=== PATIENT | female | born 1980 | race Caucasian/White ===

== ENCOUNTER 2017-09-15 16:47 | Observation (INO) | payer OTHER ==
[2017-09-15] MEDS ORDERED: ACETAMINOPHEN 1000 MG/100 ML VIAL (NON FORMULARY) IVPB ONE (17:09)
[2017-09-15] MEDS ORDERED: SODIUM CHLORIDE 0.9% 500 ML INFUS.BAG IV ONE (17:09)
[2017-09-15] MEDS ORDERED: morphine CARPU-JECT 4 MG/1 ML DISP.SYRIN IVPUSH ONE ×4 (17:09→23:04)
[2017-09-15] MEDS ORDERED: CYCLOBENZAPRINE HCL 5 MG TABLET PO SCH (17:15)
--- NOTE | 2017-09-15 17:16 | PDOC ---
History of Present Illness - General History Source: Patient, Sibling Exam Limitations: No Limitations - History of Present Illness Initial Comments: 09/15/17 17:31 The patient is 37 year old female, with a significant past medical history of back pain, who is brought to the ER accompanied by family member complaining of lower back pain since earlier today. The patient reports getting a massage on Monday, which triggered muscle soreness. She reports using epsom salt baths and ice packs with mild relief of symptoms. However today while showering patient reports the pain became worse. The patient states she then laid bed and applied muscle stimulators to her lower back with minimal relief of symptoms. Patient reports pain is exacerbated with movement. The patient reports a history of back pain in the past, for which she has followed up with neurology and was told the pain was muscular not skeletal. At the time, patient states she received an injection which alleviated her symptoms. The patient states she takes Ibuprofen for her pain as needed. The patient reports her last meal was yesterday. She denies any flank pain, dysuria, or hematuria. She denies any fever, chills, headache, or dizziness. She denies any recent travel or sick contacts. Allergies: Naproxen Past Surgical History: None reported Social History: Social ETOH use. Non smoker. No recreational drug use. <Fadumo Hood - Last Filed: 09/15/17 17:31> <Mary Nguyen - Last Filed: 09/15/17 19:16> - General History Source: Patient Exam Limitations: No Limitations <Teodoro Alfaro - Last Filed: 09/15/17 22:06> - General Chief Complaint: Back Pain Stated Complaint: PAIN, ACUTE Time Seen by Provider: 09/15/17 16:50 Past History <Fadumo Hood - Last Filed: 09/15/17 17:31> <Mary Nguyen - Last Filed: 09/15/17 19:16> - Past Medical History COPD: No Other medical history: BACK PAIN. - Suicide/Smoking/Psychosocial Hx Smoking History: Never smoked Hx Alcohol Use: No Drug/Substance Use Hx: No Substance Use Type: None <Teodoro Alfaro - Last Filed: 09/15/17 22:06> - Past Medical History Allergies/Adverse Reactions: Allergies Allergy/AdvReac Type Severity Reaction Status Date / Time naproxen Allergy Intermediate Swelling Verified 09/15/17 17:01 Home Medications: Ambulatory Orders Ibuprofen 600 mg PO PRN PRN 09/15/17 Review of Systems - Review of Systems Able to Perform ROS?: Yes Comments:: 09/15/17 17:31 GENERAL/CONSTITUTIONAL: No fever or chills. No weakness. HEAD, EYES, EARS, NOSE AND THROAT: No change in vision. No ear pain or discharge. No sore throat. CARDIOVASCULAR: No chest pain or shortness of breath. RESPIRATORY: No cough, wheezing, or hemoptysis. GASTROINTESTINAL: No nausea, vomiting, diarrhea or constipation. GENITOURINARY: No dysuria, frequency, or change in urination. MUSCULOSKELETAL: (+) lower back pain. No neck pain. SKIN: No rash NEUROLOGIC: No headache, vertigo, loss of consciousness, or change in strength/ sensation. ENDOCRINE: No increased thirst. No abnormal weight change. HEMATOLOGIC/LYMPHATIC: No anemia, easy bleeding, or history of blood clots. ALLERGIC/IMMUNOLOGIC: No hives or skin allergy. <Fadumo Hood - Last Filed: 09/15/17 17:31> *Physical Exam - Vital Signs Last Vital Signs Temp Pulse Resp BP Pulse Ox 98.2 F 84 18 142/73 99 09/15/17 17:02 09/15/17 17:02 09/15/17 17:02 09/15/17 17:02 09/15/17 17:02 - Physical Exam Comments: 09/15/17 17:31 GENERAL: Awake, alert, and fully oriented, appears uncomfortable HEAD: No signs of trauma EYES: PERRLA, EOMI, sclera anicteric, conjunctiva clear ENT: Auricles normal inspection, hearing grossly normal, nares patent, oropharynx clear without exudates. Moist mucosa NECK: Normal ROM, supple, no lymphadenopathy, JVD, or masses LUNGS: Breath sounds equal, clear to auscultation bilaterally. No wheezes, and no crackles HEART: Regular rate and rhythm, normal S1 and S2, no murmurs, rubs or gallops BACK: (+) muscle spasm, left lower back tenderness to palpation, No bony tenderness or step offs EXTREMITIES: Normal range of motion, no edema. No clubbing or cyanosis. No cords, erythema, or tenderness NEUROLOGICAL: Cranial nerves II through XII grossly intact. Normal speech, normal gait SKIN: Warm, Dry, normal turgor, no rashes or lesions noted. <Fadumo Hood - Last Filed: 09/15/17 17:31> - Vital Signs Last Vital Signs Temp Pulse Resp BP Pulse Ox 98.2 F 84 18 142/73 99 09/15/17 17:02 09/15/17 17:02 09/15/17 17:02 09/15/17 17:02 09/15/17 17:02 <Mary Nguyen - Last Filed: 09/15/17 19:16> - Vital Signs Last Vital Signs Temp Pulse Resp BP Pulse Ox 98.2 F 84 18 142/73 99 09/15/17 17:02 09/15/17 17:02 09/15/17 17:02 09/15/17 17:02 09/15/17 17:02 <Teodoro Alfaro - Last Filed: 09/15/17 22:06> ED Treatment Course - ADDITIONAL ORDERS Additional order review: Laboratory Results 09/15/17 17:32 Serum , Qual Negative - Medications Given in the ED: ED Medications Discontinued Medications Generic Name Dose Route Start Last Admin Trade Name Freq PRN Reason Stop Dose Admin Acetaminophen 1,000 mg 09/15/17 17:09 09/15/17 17:56 Ofirmev Injection - IVPB 09/15/17 17:10 1,000 mg ONCE ONE Administration Diazepam 5 mg 09/15/17 18:29 09/15/17 18:56 Valium Injection - IVPUSH 09/15/17 18:30 Not Given ONCE ONE Diazepam 5 mg 09/15/17 18:55 09/15/17 19:00 Valium - PO 09/15/17 18:56 5 mg ONCE ONE Administration Morphine Sulfate 4 mg 09/15/17 17:09 09/15/17 17:31 Morphine Injection - IVPUSH 09/15/17 17:10 4 mg ONCE ONE Administration Oxycodone HCl 5 mg 09/15/17 18:50 09/15/17 19:00 Roxicodone - PO 09/15/17 18:51 5 mg ONCE ONE Administration Sodium Chloride 1,000 ml 09/15/17 17:09 09/15/17 17:30 Normal Saline - IV 09/15/17 17:10 1,000 ml ONCE ONE Administration <Mary Nguyen - Last Filed: 09/15/17 19:16> - LABORATORY CBC & Chemistry Diagram: 09/15/17 20:00 09/15/17 20:00 <Teodoro Alfaro - Last Filed: 09/15/17 22:06> Medical Decision Making - Medical Decision Making 09/15/17 17:33 A portion of this note was documented by scribe services under my direction. I have reviewed the details of the note, within reason, and agree with the documentation with the following case summary and management plan written by me. Patient treated in the ED. Nursing notes are reviewed and incorporated into the medical decision-making. Vital signs reviewed. Peripheral IV access obtained by the nurse, laboratory studies are drawn and sent, reviewed and interpreted by myself. Vital Signs Temp Pulse Resp BP Pulse Ox 98.2 F 84 18 142/73 99 09/15/17 17:02 09/15/17 17:02 09/15/17 17:02 09/15/17 17:02 09/15/17 17:02 37-year-old female with past medical history of back spasms presents with sudden onset of back spasms today. Patient has had intermittent lower back spasms for several years. Yesterday night, the patient went out and had several drinks of alcohol. Today, patient start noticing some severe left lower back spasm without associated dysuria, urinary frequency, urinary or bowel incontinence. States that occasionally radiates onto the buttocks. Denies any numbness or weakness. States that she takes ibuprofen but the pain has not been relieved. Came via EMS for severe pain. I suspect this is likely muscle spasm at this time. We'll attempt to control pain and give IV hydration and reassess. 09/15/17 22:05 CBC, BMP 09/15/17 20:00 09/15/17 20:00 CMP Sodium 139 mmol/L (136-145) 09/15/17 20:00 Potassium 3.9 mmol/L (3.5-5.1) 09/15/17 20:00 Chloride 109 mmol/L (98-107) H 09/15/17 20:00 Carbon Dioxide 20 mmol/L (21-32) L 09/15/17 20:00 Anion Gap 10 (8-16) 09/15/17 20:00 BUN 8 mg/dL (7-18) 09/15/17 20:00 Creatinine 0.4 mg/dL (0.55-1.02) L 09/15/17 20:00 Creat Clearance w eGFR > 60 (>60) 09/15/17 20:00 Random Glucose 65 mg/dL (74-106) L 09/15/17 20:00 Calcium 8.2 mg/dL (8.5-10.1) L 09/15/17 20:00 Magnesium 2.1 mg/dL (1.8-2.4) 09/15/17 20:00 Total Bilirubin 0.6 mg/dL (0.2-1.0) 09/15/17 20:00 AST 12 U/L (15-37) L 09/15/17 20:00 ALT 17 U/L (12-78) 09/15/17 20:00 Alkaline Phosphatase 47 U/L (45-117) 09/15/17 20:00 Total Protein 7.2 g/dl (6.4-8.2) 09/15/17 20:00 Albumin 4.1 g/dl (3.4-5.0) 09/15/17 20:00 Serum , Qual Negative 09/15/17 17:32 Labs reviewed. Pt with severe back spasm despite numerous medications. Given severe pain, will send CPK to r/o rhabdo. IVF, pain control, muscle relaxants. Case discussed with [facility] hospitalist who accepts patient to med/surg obs Case discussed in detail with admitting physician including history, physical exam and ancillary studies. Admitting physician has assumed care for the patient, will follow all pending diagnostics and will complete the evaluation and treatment. <Teodoro Alfaro - Last Filed: 09/15/17 22:06> *DC/Admit/Observation/Transfer - Attestations Scribe Attestion: 09/15/17 17:31 Documentation prepared by Fadumo Hood, acting as anesthesiology medical doctor for Teodoro Alfaro MD. <Fadumo Hood - Last Filed: 09/15/17 17:31> <Mary Nguyen - Last Filed: 09/15/17 19:16> - Discharge Dispostion Admit: Yes <Teodoro Alfaro - Last Filed: 09/15/17 22:06> Diagnosis at time of Disposition: Back spasm - Discharge Dispostion Condition at time of disposition: Stable - Referrals Referrals: Celina Lieberman MD [Primary Care Provider] -
[2017-09-15] MEDS ORDERED: morphine SULFATE 4 MG/ML VIAL ONE ×3 (17:23→21:49)
[2017-09-15] MEDS ORDERED: CYCLOBENZAPRINE HCL 10 MG TABLET (FP) ONE (17:23)
[2017-09-15] MEDS ORDERED: ACETAMINOPHEN INJECTION 100 ML IVPB ONE (17:23)
[2017-09-15 17:40] VITALS: BMI 20.7
[2017-09-15] MEDS ORDERED: diazePAM CARPU-JECT 10 MG/2 ML DISP.SYRIN IVPUSH ONE (18:29)
[2017-09-15] MEDS ORDERED: oxyCODONE HCL 5 MG TABLET PO ONE (18:50)
[2017-09-15] MEDS ORDERED: oxyCODONE HCL 5 MG TABLET ONE (18:54)
[2017-09-15] MEDS ORDERED: diazePAM 5 MG TABLET PO ONE ×2 (18:55→21:38)
[2017-09-15] MEDS ORDERED: diazePAM 5 MG TABLET ONE ×2 (18:56→21:39)
[2017-09-15 20:25] LABS: BASO % 0.4 % (0-2.0); HEMATOCRIT 33.7 % (32.4-45.2); HEMOGLOBIN 11.5 GM/dL (10.7-15.3); LYMPH % 20.1 % (8-40); MCH 30.7 pg (25.7-33.7); MCHC 34.2 g/dl (32.0-36.0); MEAN CELL VOLUME 89.7 fl (80-96); MEAN PLT VOLUME 10.4 fl (7.5-11.1); MONO % 9.4 % (3.8-10.2); NEUT % 70.1 % (42.8-82.8); PLATELET COUNT 190 K/MM3 (134-434); RBC 3.76 M/mm3 (3.60-5.2); RDW 13.7 % (11.6-15.6); WHITE BLOOD COUNT 7.1 K/mm3 (4.0-10.0)
[2017-09-15 21:29] LABS: ALBUMIN 4.1 g/dl (3.4-5.0); ALK PHOS 47 U/L (45-117); ANION GAP 10 (8-16); BILIRUBIN,TOTAL 0.6 mg/dL (0.2-1.0); BLOOD UREA NITROGEN 8 mg/dL (7-18); CALCIUM 8.2 mg/dL (8.5-10.1); CHLORIDE 109 mmol/L (98-107); CO2 20 mmol/L (21-32); CREATININE 0.4 mg/dL (0.55-1.02); GLUCOSE,RANDOM 65 mg/dL (74-106); MAGNESIUM 2.1 mg/dL (1.8-2.4); POTASSIUM 3.9 mmol/L (3.5-5.1); SGOT/AST 12 U/L (15-37); SGPT/ALT 17 U/L (12-78); SODIUM 139 mmol/L (136-145); TOT PROT 7.2 g/dl (6.4-8.2)
[2017-09-15] MEDS ORDERED: ACETAMINOPHEN 325 MG TABLET (FP) PO PRN (22:46)
--- NOTE | 2017-09-15 22:51 | HP ---
CHIEF COMPLAINT: PCP: HISTORY OF PRESENT ILLNESS: ER course was notable for: (1) (2) (3) Recent Travel: PAST MEDICAL HISTORY: PAST SURGICAL HISTORY: Social History: Smoking: Alcohol: Drugs: Family History: Allergies naproxen Allergy (Intermediate, Verified 09/15/17 17:01) Swelling HOME MEDICATIONS: Home Medications Medication Instructions Recorded Ibuprofen 600 mg PO PRN PRN 09/15/17 REVIEW OF SYSTEMS CONSTITUTIONAL: Absent: fever, chills, diaphoresis, generalized weakness, malaise, loss of appetite, weight change HEENT: Absent: rhinorrhea, nasal congestion, throat pain, throat swelling, difficulty swallowing, mouth swelling, ear pain, eye pain, visual changes CARDIOVASCULAR: Absent: chest pain, syncope, palpitations, irregular heart rate, lightheadedness , peripheral edema RESPIRATORY: Absent: cough, shortness of breath, dyspnea with exertion, orthopnea, wheezing, stridor, hemoptysis GASTROINTESTINAL: Absent: abdominal pain, abdominal distension, nausea, vomiting, diarrhea, constipation, melena, hematochezia GENITOURINARY: Absent: dysuria, frequency, urgency, hesitancy, hematuria, flank pain, genital pain MUSCULOSKELETAL: Absent: myalgia, arthralgia, joint swelling, back pain, neck pain SKIN: Absent: rash, itching, pallor HEMATOLOGIC/IMMUNOLOGIC: Absent: easy bleeding, easy bruising, lymphadenopathy, frequent infections ENDOCRINE: Absent: unexplained weight gain, unexplained weight loss, heat intolerance, cold intolerance NEUROLOGIC: Absent: headache, focal weakness or paresthesias, dizziness, unsteady gait, seizure, mental status changes, bladder or bowel incontinence PSYCHIATRIC: Absent: anxiety, depression, suicidal or homicidal ideation, hallucinations. PHYSICAL EXAMINATION Vital Signs - 24 hr 09/15/17 17:02 Temperature 98.2 F Pulse Rate 84 Respiratory 18 Rate Blood Pressure 142/73 O2 Sat by Pulse 99 Oximetry (%) GENERAL: Awake, alert, and fully oriented, in no acute distress. HEAD: Normal with no signs of trauma. EYES: Pupils equal, round and reactive to light, extraocular movements intact, sclera anicteric, conjunctiva clear. No lid lag. EARS, NOSE, THROAT: Ears normal, nares patent, oropharynx clear without exudates. Moist mucous membranes. NECK: Normal range of motion, supple without lymphadenopathy, JVD, or masses. LUNGS: Breath sounds equal, clear to auscultation bilaterally. No wheezes, and no crackles. No accessory muscle use. HEART: Regular rate and rhythm, normal S1 and S2 without murmur, rub or gallop. ABDOMEN: Soft, nontender, not distended, normoactive bowel sounds, no guarding, no rebound, no masses. No hepatomegaly or splenomegaly. MUSCULOSKELETAL: Normal range of motion at all joints. No bony deformities or tenderness. No CVA tenderness. UPPER EXTREMITIES: 2+ pulses, warm, well-perfused. No cyanosis. No clubbing. No peripheral edema. LOWER EXTREMITIES: 2+ pulses, warm, well-perfused. No calf tenderness. No peripheral edema. NEUROLOGICAL: Cranial nerves II-XII intact. Normal speech. Normal gait. PSYCHIATRIC: Cooperative. Good eye contact. Appropriate mood and affect. SKIN: Warm, dry, normal turgor, no rashes or lesions noted, normal capillary refill. Laboratory Results - last 24 hr 09/15/17 09/15/17 09/15/17 17:32 20:00 20:00 WBC 7.1 RBC 3.76 Hgb 11.5 Hct 33.7 MCV 89.7 MCH 30.7 MCHC 34.2 RDW 13.7 Plt Count 190 MPV 10.4 Neutrophils % 70.1 Lymphocytes % 20.1 Monocytes % 9.4 Eosinophils % 0.0 Basophils % 0.4 Sodium 139 Potassium 3.9 Chloride 109 H Carbon Dioxide 20 L Anion Gap 10 BUN 8 Creatinine 0.4 L Creat Clearance w eGFR > 60 Random Glucose 65 L Calcium 8.2 L Magnesium 2.1 Total Bilirubin 0.6 AST 12 L ALT 17 Alkaline Phosphatase 47 Total Protein 7.2 Albumin 4.1 Serum , Qual Negative ASSESSMENT/PLAN: Visit type - Critical Care Critical Care patient: No Hospitalist Screening - Colonoscopy Questionnaire Colonoscopy Questionnaire: Colonoscopy Questionnaire
--- NOTE | 2017-09-15 22:52 | HP ---
CHIEF COMPLAINT: Severe back pain PCP: Dr. Balderas HISTORY OF PRESENT ILLNESS: 58 year old F with pmh of back spasms (2 yrs ago tx with IM injections and PT) presented with severe back spasms. Patient states her back started becoming tight on Monday and then today went into bad spasms after she woke up. The pain was 10/10 in her left lower back radiating circumferentially around her left thigh. She tried ibuprofen with no help. Patient states the pain is sharp and shooting and is 10/10. Patient states that she had a back injury 6 years ago where she "threw out her back". She denies any fever, chills, chest pain, sob, abdominal pain, numbness, tingling, weakness, heavy vaginal bleeding, irregular vaginal bleeding, n/v/d/c. Patient denies loss of bowel/bladder function. Patient denies any trauma to the area. ER course was notable for: (1) labs (2) pain medications Recent Travel: denies PAST MEDICAL HISTORY: back spams PAST SURGICAL HISTORY: denies Social History: Smoking: rarely Alcohol: 3-4 drinks/week Drugs: denies Family History: Allergies naproxen Allergy (Intermediate, Verified 09/15/17 17:01) Swelling HOME MEDICATIONS: Home Medications Medication Instructions Recorded Ibuprofen 600 mg PO PRN PRN 09/15/17 REVIEW OF SYSTEMS CONSTITUTIONAL: Absent: fever, chills, diaphoresis, generalized weakness, malaise, loss of appetite, weight change HEENT: Absent: rhinorrhea, nasal congestion, throat pain, throat swelling, difficulty swallowing, mouth swelling, ear pain, eye pain, visual changes CARDIOVASCULAR: Absent: chest pain, syncope, palpitations, irregular heart rate, lightheadedness , peripheral edema RESPIRATORY: Absent: cough, shortness of breath, dyspnea with exertion, orthopnea, wheezing, stridor, hemoptysis GASTROINTESTINAL: Absent: abdominal pain, abdominal distension, nausea, vomiting, diarrhea, constipation, melena, hematochezia GENITOURINARY: Absent: dysuria, frequency, urgency, hesitancy, hematuria, flank pain, genital pain MUSCULOSKELETAL: Absent: myalgia, arthralgia, joint swelling, back pain, neck pain SKIN: Absent: rash, itching, pallor HEMATOLOGIC/IMMUNOLOGIC: Absent: easy bleeding, easy bruising, lymphadenopathy, frequent infections ENDOCRINE: Absent: unexplained weight gain, unexplained weight loss, heat intolerance, cold intolerance NEUROLOGIC: Absent: headache, focal weakness or paresthesias, dizziness, unsteady gait, seizure, mental status changes, bladder or bowel incontinence PSYCHIATRIC: Absent: anxiety, depression, suicidal or homicidal ideation, hallucinations. PHYSICAL EXAMINATION Vital Signs - 24 hr 09/15/17 17:02 Temperature 98.2 F Pulse Rate 84 Respiratory 18 Rate Blood Pressure 142/73 O2 Sat by Pulse 99 Oximetry (%) GENERAL: Awake, alert, and fully oriented, in no acute distress. HEAD: Normal with no signs of trauma. EYES: Extraocular movements intact, sclera anicteric, conjunctiva clear. No lid lag. EARS, NOSE, THROAT: Moist mucous membranes NECK: Decreased ROM when attempting to put chin to chest, supple without lymphadenopathy, JVD, or masses. LUNGS: Breath sounds equal, clear to auscultation bilaterally--anteriorly. No wheezes, and no crackles. No accessory muscle use. HEART: Regular rate and rhythm, normal S1 and S2 without murmur, rub or gallop. ABDOMEN: Soft, nontender, not distended, normoactive bowel sounds, no guarding, no rebound, no masses. No hepatomegaly or splenomegaly. MUSCULOSKELETAL: +Tenderness to palpation of left lower back UPPER EXTREMITIES: 2+ pulses, warm, well-perfused. No cyanosis. No clubbing. No peripheral edema. LOWER EXTREMITIES: 2+ pulses, warm, well-perfused. No calf tenderness. No peripheral edema. PSYCHIATRIC: Cooperative. Good eye contact. Appropriate mood and affect. SKIN: Warm, dry, normal turgor, no rashes or lesions noted, normal capillary refill. Laboratory Results - last 24 hr 09/15/17 09/15/17 09/15/17 17:32 20:00 20:00 WBC 7.1 RBC 3.76 Hgb 11.5 Hct 33.7 MCV 89.7 MCH 30.7 MCHC 34.2 RDW 13.7 Plt Count 190 MPV 10.4 Neutrophils % 70.1 Lymphocytes % 20.1 Monocytes % 9.4 Eosinophils % 0.0 Basophils % 0.4 Sodium 139 Potassium 3.9 Chloride 109 H Carbon Dioxide 20 L Anion Gap 10 BUN 8 Creatinine 0.4 L Creat Clearance w eGFR > 60 Random Glucose 65 L Calcium 8.2 L Magnesium 2.1 Total Bilirubin 0.6 AST 12 L ALT 17 Alkaline Phosphatase 47 Total Protein 7.2 Albumin 4.1 Serum , Qual Negative ASSESSMENT/PLAN: 37 year old F with pmh of back spasms admitted for intractable back pain/spasms #Intractable back pain/spasms -NS @ 100 cc/hr -Valium prn -Flexeril daily -Morphine prn -Tylenol prn -check cpk/ua #fen/gi -ns @ 100 cc/hr -wnl -regular diet #ppx -Teds #obs Visit type - Emergency Visit Emergency Visit: Yes Care time: The patient presented to the Emergency Department on the above date and was hospitalized for further evaluation of their emergent condition. - New Patient This patient is new to me today: Yes Date on this admission: 09/15/17 - Critical Care Critical Care patient: No Hospitalist Screening - Colonoscopy Questionnaire Colonoscopy Questionnaire: Colonoscopy Questionnaire - Patient: 50 - 75 years old and never had a screening colonoscopy: Unknown History of colon or rectal polyps, or CA: Unknown History of IBD, Crohn's disease or UC: Unknown History of abdominal radiation therapy as a child: Unknown - Relative: 1 with colon or rectal CA, or polyps at age 60 or younger: Unknown Colon or rectal CA diagnosed at age 45 or younger: Unknown Multiple relatives with colon or rectal CA: Unknown - Outcome: Screening Result: Negative Screen
[2017-09-15] MEDS: SODIUM CHLORIDE 1,000 ML IV SCH (23:14)
[2017-09-15] MEDS ORDERED: MORPHINE SULFATE 10 MG/1 ML *VIAL ONE (23:17)
[2017-09-16] MEDS ORDERED: ACETAMINOPHEN 325 MG TABLET (FP) ONE (02:24)
[2017-09-16] MEDS ORDERED: diazePAM 5 MG TABLET ONE (02:25)
[2017-09-16] MEDS: diazePAM 5 MG TABLET PO PRN ×2 (02:28→07:43)
[2017-09-16] MEDS ORDERED: MORPHINE SULFATE 10 MG/1 ML *VIAL ONE (03:49)
[2017-09-16] MEDS: SODIUM CHLORIDE 1,000 ML IV SCH ×2 (05:06→14:55)
--- NOTE | 2017-09-16 05:59 | PN ---
Teaching Attending Note Name of Resident: Eddie Neal ATTENDING PHYSICIAN STATEMENT I saw and evaluated the patient. I reviewed the resident's note and discussed the case with the resident. I agree with the resident's findings and plan as documented. SUBJECTIVE: OBJECTIVE: ASSESSMENT AND PLAN: 37 y/o female presented for back spasm that started about 4 years ago presented with similar symptoms to the one she had before, she stated she has been symptom free for over 2 years. plan: pain medication muscle relaxants neurology evaluation consider rehab
[2017-09-16] MEDS: morphine SULFATE 4 MG/ML VIAL IVPUSH PRN ×2 (07:42→12:10)
[2017-09-16 08:37] LABS: BASO % 0.2 % (0-2.0); EOS % 1.2 % (0-4.5); HEMATOCRIT 31.7 % (32.4-45.2); HEMOGLOBIN 10.6 GM/dL (10.7-15.3); LYMPH % 30.3 % (8-40); MCH 30.3 pg (25.7-33.7); MCHC 33.5 g/dl (32.0-36.0); MEAN CELL VOLUME 90.5 fl (80-96); MEAN PLT VOLUME 9.8 fl (7.5-11.1); MONO % 7.9 % (3.8-10.2); NEUT % 60.4 % (42.8-82.8); PLATELET COUNT 172 K/MM3 (134-434); RDW 13.5 % (11.6-15.6); WHITE BLOOD COUNT 8.5 K/mm3 (4.0-10.0)
[2017-09-16 09:02] LABS: CHLORIDE 112 mmol/L (98-107); POTASSIUM 3.3 mmol/L (3.5-5.1); SODIUM 141 mmol/L (136-145)
[2017-09-16 09:40] LABS: BLOOD UREA NITROGEN 4 mg/dL (7-18)
[2017-09-16 09:48] LABS: ANION GAP 11 (8-16); CALCIUM 8.1 mg/dL (8.5-10.1); CO2 18 mmol/L (21-32)
[2017-09-16 10:07] LABS: URINE APPEARANCE TURBID; URINE BILIRUBIN NEGATIVE (<2.0 mg/dL); URINE BLOOD 1+ (NEGATIVE); URINE COLOR DKYELLOW; URINE GLUCOSE (UA) NEGATIVE (NEGATIVE); URINE KETONE 1+ (NEGATIVE); URINE NITRITE NEGATIVE (NEGATIVE); URINE UROBILINOGEN NEGATIVE mg/dL (0.2-1.0)
[2017-09-16] MEDS: CYCLOBENZAPRINE HCL 10 MG TABLET (FP) PO SCH (10:17)
[2017-09-16 10:23] LABS: URINE LEUK ESTERASE 2+ (NEGATIVE); URINE PROTEIN 2+ (NEGATIVE)
[2017-09-16 10:25] LABS: EPI CELLS MANY /HPF (FEW); URINE BACTERIA MANY /hpf (NONE SEEN)
[2017-09-16 12:30] LABS: COCAINE, UR NEGATIVE ng/ml (CUTOFF=300); METHADONE, UR NEGATIVE ng/ml (CUTOFF=300); PHENCYCLIDINE,URINE NEGATIVE ng/ml (CUTOFF=25); URINE AMPHETAMINES NEGATIVE ng/ml (CUTOFF=500); URINE BARBITURATES NEGATIVE ng/ml (CUTOFF=200)
[2017-09-16 12:54] LABS: OPIATES, URI POSITIVE ng/ml (CUTOFF=300); URINE BENZODIAZEPINES POSITIVE ng/ml (CUTOFF=200)
--- NOTE | 2017-09-16 14:05 | PN ---
Physical Exam: SUBJECTIVE: Patient seen and examined Patient continues to have severe back, continues to use IV morphine and valium. OBJECTIVE: Vital Signs Temperature 98.3 F 09/16/17 09:42 Pulse Rate 64 09/16/17 09:42 Respiratory Rate 18 09/16/17 09:42 Blood Pressure 104/57 09/16/17 09:42 O2 Sat by Pulse Oximetry (%) 98 09/16/17 04:30 GENERAL: The patient is awake, alert, and fully oriented, in no acute distress. HEAD: Normal with no signs of trauma. EYES: PERRL, extraocular movements intact, sclera anicteric, conjunctiva clear. ENT: Ears normal, oropharynx clear without exudates, moist mucous membranes. NECK: Trachea midline, full range of motion, supple. LUNGS: Breath sounds equal, clear to auscultation bilaterally, no wheezes, no crackles, no accessory muscle use. HEART: Regular rate and rhythm, S1, S2 without murmur, rub or gallop. ABDOMEN: Soft, nontender, nondistended, normoactive bowel sounds, no guarding, no rebound, no hepatosplenomegaly, no masses. EXTREMITIES: 2+ pulses, warm, well-perfused, no edema. NEUROLOGICAL: Cranial nerves II through XII grossly intact. Normal speech, gait not observed. PSYCH: Normal mood, normal affect. SKIN: Warm, dry, normal turgor, no rashes or lesions noted. CBCD WBC 8.5 K/mm3 (4.0-10.0) 09/16/17 07:00 RBC 3.50 M/mm3 (3.60-5.2) L 09/16/17 07:00 Hgb 10.6 GM/dL (10.7-15.3) L 09/16/17 07:00 Hct 31.7 % (32.4-45.2) L 09/16/17 07:00 MCV 90.5 fl (80-96) 09/16/17 07:00 MCHC 33.5 g/dl (32.0-36.0) 09/16/17 07:00 RDW 13.5 % (11.6-15.6) 09/16/17 07:00 Plt Count 172 K/MM3 (134-434) 09/16/17 07:00 MPV 9.8 fl (7.5-11.1) 09/16/17 07:00 CMP Sodium 141 mmol/L (136-145) 09/16/17 07:00 Potassium 3.3 mmol/L (3.5-5.1) L 09/16/17 07:00 Chloride 112 mmol/L (98-107) H 09/16/17 07:00 Carbon Dioxide 18 mmol/L (21-32) L 09/16/17 07:00 Anion Gap 11 (8-16) 09/16/17 07:00 BUN 4 mg/dL (7-18) L 09/16/17 07:00 Creatinine 0.4 mg/dL (0.55-1.02) L 09/15/17 20:00 Creat Clearance w eGFR > 60 (>60) 09/15/17 20:00 Random Glucose 65 mg/dL (74-106) L 09/15/17 20:00 Calcium 8.1 mg/dL (8.5-10.1) L 09/16/17 07:00 Total Bilirubin 0.6 mg/dL (0.2-1.0) 09/15/17 20:00 AST 12 U/L (15-37) L 09/15/17 20:00 ALT 17 U/L (12-78) 09/15/17 20:00 Alkaline Phosphatase 47 U/L (45-117) 09/15/17 20:00 Total Protein 7.2 g/dl (6.4-8.2) 09/15/17 20:00 Albumin 4.1 g/dl (3.4-5.0) 09/15/17 20:00 CARDIAC ENZYMES Creatine Kinase 53 IU/L (26-192) 09/15/17 22:40 Current Medications Generic Name Dose Route Start Last Admin Trade Name Freq PRN Reason Stop Dose Admin Acetaminophen 650 mg 09/15/17 22:46 09/16/17 02:28 Tylenol - PO 650 mg Q4H PRN Administration PAIN LEVEL 4 - 6 Cyclobenzaprine HCl 10 mg 09/16/17 08:59 09/16/17 10:17 Flexeril - PO 10 mg DAILY MARIZA Administration Diazepam 5 mg 09/15/17 22:46 09/16/17 07:43 Valium - PO 5 mg Q8H PRN Administration MUSCLE SPASMS Sodium Chloride 1,000 mls @ 100 mls/hr 09/15/17 23:00 09/16/17 05:06 Normal Saline - IV 100 mls/hr ASDIR MARIZA Administration Ibuprofen 600 mg 09/16/17 13:45 Caldolor Injection - IVPB 09/17/17 13:44 Q6H MARIZA Morphine Sulfate 4 mg 09/15/17 22:46 09/16/17 12:10 Morphine Sulfate IVPUSH 4 mg Q4H PRN Administration PAIN LEVEL 7 - 10 Potassium Chloride 20 meq 09/16/17 13:15 K-Dur - PO BID MARIZA Home Medications Medication Instructions Recorded Ibuprofen 600 mg PO PRN PRN 09/15/17 A/P: Patient is 37 y/o female presented for severe back spasm , had a similar episode 4 yrs ago and has been free of symptoms for the past 2 yrs. # Severe back pain/spasm will place the patient on IV Motrin 600mg q6h, scheduled dose x 1 day, CT of [facility]spine, neuro consult. consider ortho consult if pain continues. DVT px: early ambulation, SCds while in bed. Visit type - Emergency Visit Emergency Visit: Yes ED Registration Date: 09/15/17 Care time: The patient presented to the Emergency Department on the above date and was hospitalized for further evaluation of their emergent condition. - New Patient This patient is new to me today: Yes Date on this admission: 09/16/17 - Critical Care Critical Care patient: No - Discharge Referral Referred to [facility] No
[2017-09-16] MEDS ORDERED: morphine SULFATE 4 MG/ML VIAL IVPUSH PRN (14:14)
[2017-09-16] MEDS: POTASSIUM CHLORIDE TABS 20 MEQ TABLET.ER (FP) PO SCH ×2 (14:47→21:49)
[2017-09-16] MEDS: IBUPROFEN 800 MG/8 ML IJ IVPB SCH ×2 (15:25→20:11)
[2017-09-16 15:45] LABS: CREATININE 0.4 mg/dL (0.55-1.02); GLUCOSE,RANDOM 95 mg/dL (74-106)
[2017-09-17] MEDS: IBUPROFEN 800 MG/8 ML IJ IVPB SCH ×2 (02:22→07:18)
[2017-09-17] MEDS: SODIUM CHLORIDE 1,000 ML IV SCH (02:23)
[2017-09-17] MEDS: POTASSIUM CHLORIDE TABS 20 MEQ TABLET.ER (FP) PO SCH (09:40)
[2017-09-17] MEDS: CYCLOBENZAPRINE HCL 10 MG TABLET (FP) PO SCH (09:41)
--- NOTE | 2017-09-17 11:05 | CON.NEURO ---
Consult Consult Specialty:: Neurology-[facility] - History of Present Illness History of Present Illness: 58 year old F with pmh of back spasms (2 yrs ago tx with IM injections and PT) presented with severe back spasms. Patient states her back started becoming tight on Monday and then today went into bad spasms after she woke up. The pain was 10/10 in her left lower back radiating circumferentially around her left thigh. She tried ibuprofen with no help. Patient states the pain is sharp and shooting and is 10/10. Patient states that she had a back injury 6 years ago where she "threw out her back". She denies any fever, chills, chest pain, sob, abdominal pain, numbness, tingling, weakness, heavy vaginal bleeding, irregular vaginal bleeding, n/v/d/c. Patient denies loss of bowel/bladder function. Patient denies any trauma to the area. ER course was notable for: (1) labs (2) pain medications -Pt. reports she first had lumbar pain 6 years ago after minimal back stress, rx. with PT at that time it did ot radiate. This recurred agai 2 years ago but rabiated to at thighs above knees, rx. with chiropractic rx/massage/nsaids and resolved. Now x 6 days has had lumbar/gluteal pain, bilateral, radiates on left to calf with left foot paresthesias. Denies bowel/bladder symptoms. No recent back trauma. - Alcohol/Substance Use Hx Alcohol Use: No - Smoking History Smoking history: Never smoked Home Medications - Allergies Allergies/Adverse Reactions: Allergies Allergy/AdvReac Type Severity Reaction Status Date / Time naproxen Allergy Intermediate Swelling Verified 09/15/17 17:01 - Home Medications Home Medications: Ambulatory Orders Ibuprofen 600 mg PO PRN PRN 09/15/17 Physical Exam-Neuro Vital Signs: Vital Signs Temperature 97.9 F 09/17/17 06:00 Pulse Rate 77 09/17/17 06:00 Respiratory Rate 18 09/17/17 06:00 Blood Pressure 113/65 09/17/17 06:00 O2 Sat by Pulse Oximetry (%) 99 09/17/17 04:00 Labs: CBC, BMP 09/16/17 07:00 09/16/17 07:00 - Neuro Exam Mini Mental Exam: Normal DTR's: 2+ Left Achilles (Bilat. knee jerks are 3+), 2+ Right Achilles, 3+ Left Bicep, 3+ Right Bicep, 3+ Left Tricep, 3+ Right Tricep, 3+ Left Brachioradialis , 3+ Right Brachioradialis Babinski: Absent Motor Strength: 5/5: Left Arm, Right Arm, Left Leg, Right Leg (+ bilateral SLR test at 45 degrees.) Imaging - Results X-ray: Report Reviewed (CT l/s spie report pending) Assessment/Plan Pt. with recurrent lumbar pain and paraspinal left more than right muscle spasm , likely L3/L4 central disc prolapse more to the left. Exam with brisk knee/ue jerks. Plan: Cont i/v Motrin Will administer bilat. paraspinal trigger point injections today Cymbalta 20mg bid Outpt. PT and EMGs as outpt. Await CT l/s spine imaging results-will review and decide whether pt. requires outpt. epidural injection or not. Thank you, Soniya Dave MD.
[2017-09-17] MEDS ORDERED: LIDOCAINE HCL 1%, 10 MG/ML (20ML VIAL) ONE (11:54)
[2017-09-17] MEDS ORDERED: methylPREDNISolone ACET (DEPO) 40 MG/1 ML VIAL IM ONE (12:30)
[2017-09-17] MEDS ORDERED: BUPIVACAINE HCL/PF 0.5% (5MG/ML) 10 ML VIAL IJ ONE (12:30)
--- NOTE | 2017-09-17 12:36 | PN ---
Progress Note (short form) - Note Progress Note: PROCEDURE NOTE-LUMBAR PARASPINAL TRIGGER POINT INJECTIONS -Procedure explained, verbal cosent obtained. -Mixture of 4ccs of Bupivicaine and 40mgs of Depomedrol injected in 8 different points in bilateral lumbar paraspinal muscles. -Pt. tolerated procedure well. Soniya Dave MD.
--- NOTE | 2017-09-17 12:53 | DS ---
Physical Exam: SUBJECTIVE: Patient seen and examined; back pain improved. NO new complaints. OBJECTIVE: Vital Signs Period Temp Pulse Resp BP Sys/Kirkpatrick Pulse Ox Last 24 Hr 97.6 F-98.5 F 75-99 18-18 110-118/65-85 99-100 PHYSICAL EXAM GENERAL: The patient is awake, alert, and fully oriented, in no acute distress. LUNGS: Breath sounds equal, clear to auscultation bilaterally, no wheezes, no crackles, no accessory muscle use. HEART: Regular rate and rhythm, S1, S2 without murmur, rub or gallop. ABDOMEN: Soft, nontender, nondistended, normoactive bowel sounds, no guarding, no rebound, no hepatosplenomegaly, no masses. EXTREMITIES: 2+ pulses, warm, well-perfused, no edema. NEUROLOGICAL: Cranial nerves II through XII grossly intact. Normal speech, gait normal. hyperreflexia; sensation intact throughout; motor strength in tact BACK: no spinal point tenderness; PSYCH: Normal mood, normal affect. SKIN: Warm, dry, normal turgor, no rashes or lesions noted. LABS Laboratory Results - last 24 hr 09/16/17 09/16/17 07:00 10:00 Creatinine 0.4 L Random Glucose 95 Opiates Screen Positive Benzodiazepines Screen Positive HOSPITAL COURSE: Date of Admission:09/15/17 Date of Discharge: 09/17/17 This is a 37 year old female with chronic back pain and history of back spasms, presented with low back pain found to have small central L4-L5 disc herniation seen on CT of lumbar spine. She was treated with scheduled IV ibuprofen, which relieved initial pain. Neurology was consulted. Dr. Dave placed lumbar paraspinal trigger point injections with Bupivicaine and Depomedrol. She will follow up with him this 09/19/17. Minutes to complete discharge: 40 <Mindi Pérez - Last Filed: 09/17/17 16:15> Physical Exam: Patient is feeling better with no acute distress. patient will follow with neurologist for further w/u, has an appointment this Monday09/19/2017. <Kira Hollingsworth - Last Filed: 09/18/17 15:18> Discharge Summary Reason For Visit: SPASM OF BACK MUSCLES Current Active Problems Disc herniation (Acute) - Home Medications Comprehensive Discharge Medication List: Ambulatory Orders Ibuprofen 600 mg PO PRN PRN 09/15/17 <Mindi Pérez - Last Filed: 09/17/17 16:15> - Home Medications Comprehensive Discharge Medication List: Ambulatory Orders Ibuprofen 600 mg PO PRN PRN 09/15/17 <Kira Hollingsworth - Last Filed: 09/18/17 15:18> Condition: Stable - Instructions Diet, Activity, Other Instructions: Ms. Alan, you have been diagnosed with a small herniation of L4-L5 disc. We recommend physical therapy and to follow up with your neurologist on Monday. Please make an appointment with your primary with in one week for your hospital follow up visit. If you experience any further pain, you may take Motrin as needed. Be advised that Motrin is an NSAID, which can cause bleeding and kidney damage, please use sparingly. If you experience any worsening of symptoms including, inability to ambulate, bowel or bladder incontinence, intractable pain, please return to the emergency room. Referrals: Marylin Dave MD [Staff Physician] - 09/19/17 Celina Lieberman MD [Primary Care Provider] - Disposition: HOME This patient is new to me today: Yes Date on this admission: 09/17/17 Emergency Visit: Yes ED Registration Date: 09/15/17 Care time: The patient presented to the Emergency Department on the above date and was hospitalized for further evaluation of their emergent condition. Critical Care patient: No - Discharge Referral Referred to [facility] No <Mindi Pérez - Last Filed: 09/17/17 16:15>
[2017-09-17 15:32] VITALS: BP 101/65; PULSE 88; TEMP 98.8
== END 2017-09-17 13:56 | disposition home or self-care (01) ==
LOC: JER 16:47 → JERBED 22:06 → UNDOADMOB 22:09 → J5S 09-16 04:25
PROVIDERS: ADMIT Internal Medicine; ATTEND Internal Medicine
PROC: 3E0233Z Introduction of Anti-inflammatory into Muscle, Percutaneous Approach (ICD-10-PCS; principal; 2017-09-17)
PROC: 3E023BZ Introduction of Anesthetic Agent into Muscle, Percutaneous Approach (ICD-10-PCS; 2017-09-17)
DX: M62.830 Muscle spasm of back (principal); M51.26 Other intervertebral disc displacement, lumbar region
CPT/HCPCS: 36415; 72131-TC; 80048; 80053; 80307; 81003; 81015; 82550; 83735; 84703; 85025; 99285-25; G0378; J0131; J7030